=== PATIENT | male | born 1995 ===

== ENCOUNTER 2017-10-21 10:47 | Emergency (ER) | payer MEDICAID, OTHER ==
[2017-10-21 11:01] VITALS: TEMP 98.1
[2017-10-21] MEDS ORDERED: DiphenhydrAMINE 50 mg/ml Inj IVP STA (12:02)
[2017-10-21] MEDS ORDERED: DiphenhydrAMINE 50 mg/ml Inj ONE (12:21)
--- NOTE | 2017-10-21 12:24 | C.PDOC ---
History Of Present Illness 22 year old male presents to the ED for evaluation of a sharp, right-sided headache which has been continuous for the past 2 days. Patient states symptoms had gradual onset. He thinks his symptoms are associated with elevated blood pressure and states he has not taken Zinopril. He also complains of epigastric discomfort and denies fever, chills, chest pain, shortness of breath, nausea, vomiting. Time Seen by Provider: 10/21/17 11:23 Chief Complaint (Nursing): Headache History Per: Patient History/Exam Limitations: no limitations Onset/Duration Of Symptoms: Days (2), Gradual Quality: Sharp, Aching Associated Symptoms: denies: Nausea, Vomiting Additional History Per: Patient Past Medical History Reviewed: Historical Data, Nursing Documentation, Vital Signs Vital Signs: Last Vital Signs Temp 98.1 F 10/21/17 13:51 Pulse 63 10/21/17 13:51 Resp 18 10/21/17 13:51 BP 124/77 10/21/17 13:51 Pulse Ox 98 10/21/17 14:15 - Medical History PMH: HTN Surgical History: No Surg Hx Family History: States: Unknown Family Hx - Social History Hx Alcohol Use: No Hx Substance Use: No - Immunization History Hx Tetanus Toxoid Vaccination: No Hx Influenza Vaccination: No Hx Pneumococcal Vaccination: No Review Of Systems Constitutional: Negative for: Fever, Chills Cardiovascular: Negative for: Chest Pain Respiratory: Negative for: Shortness of Breath Neurological: Positive for: Headache Physical Exam - Physical Exam Appears: Non-toxic, No Acute Distress Skin: Normal Color, Warm, Dry Head: Atraumatic, Normacephalic Eye(s): bilateral: Normal Inspection, PERRL, EOMI Ear(s): Bilateral: Normal Nose: Normal, No Discharge Oral Mucosa: Moist Throat: Normal, No Erythema, No Exudate Neck: Supple Chest: Symmetrical, No Deformity, No Tenderness Cardiovascular: Rhythm Regular, No Murmur Respiratory: Normal Breath Sounds, No Rales, No Rhonchi, No Wheezing Gastrointestinal/Abdominal: Soft, No Tenderness, No Guarding, No Rebound Extremity: Normal ROM Neurological/Psych: Oriented x3, Normal Speech, Normal Cognition Gait: Steady ED Course And Treatment O2 Sat by Pulse Oximetry: 98 (on RA) Pulse Ox Interpretation: Normal Medical Decision Making Medical Decision Making: Assessment: headache Progress: Benadryl IVP, Pepcid IVP and Reglan IVP administered. On reassessment, patient is resting comfortably, showing no signs of distress and reports that his symptoms have resolved. Patient is stable for discharge with Rx for seven tablets of Enalapril and is advised to f/u with PMD/clinic within 1-2 days for further evaluation. Disposition Counseled Patient/Family Regarding: Diagnosis, Need For Followup, Rx Given - Disposition Referrals: [facility] [Outside] Disposition: HOME/ ROUTINE Disposition Time: 13:43 Condition: IMPROVED Additional Instructions: follow up with medical clinic in 2 days call to make an appointment take medication as prescribed return to hospital if symptoms worsens or progress Prescriptions: Enalapril Maleate [Vasotec] 10 mg PO DAILY #10 tab Instructions: Acute Headache (DC), Hypertension (ED) Forms: [facility] (Comoran), Gen Discharge Inst Jordanian, [facility] (Jordanian) Print Language: INDONESIAN - Clinical Impression Clinical Impression: Headache, Hypertension - Scribe Statement The provider has reviewed the documentation as recorded by the Scribe (Tania Webber) Provider Attestation: All medical record entries made by the Scribe were at my direction and personally dictated by me. I have reviewed the chart and agree that the record accurately reflects my personal performance of the history, physical exam, medical decision making, and the department course for this patient. I have also personally directed, reviewed, and agree with the discharge instructions and disposition.
[2017-10-21 13:53] VITALS: BP 124/77; PULSE 63; RESP 18
[2017-10-21 14:15] VITALS: O2SAT 98
== END 2017-10-21 13:53 | disposition home or self-care (01) ==
LOC: C.ER 10:47
DX: R51 Headache (principal); I10 Essential (primary) hypertension
CPT/HCPCS: 96374; 96375; 99285; J1200; J2765

== ENCOUNTER 2018-09-06 15:29 | Emergency (ER) | payer MEDICAID ==
[2018-09-06 16:12] VITALS: RESP 18; TEMP 98.3
--- NOTE | 2018-09-06 16:46 | C.PDOC ---
History Of Present Illness 22 year old male presents to the ED for evaluation of pain to the posterior rib area T5-T6, ongoing for 10 days. Patient states he works in construction, with frequent heavy lifting, and repetitive movements. Pain has worsened with hot showers and heating pads. Denies any trauma, fall, and any other associated symptoms. No SOB, fever, chills, cough, or vomiting. Time Seen by Provider: 09/06/18 16:38 Chief Complaint (Nursing): Back Pain History Per: Patient History/Exam Limitations: no limitations Onset/Duration Of Symptoms: Days Current Symptoms Are (Timing): Still Present Past Medical History Reviewed: Historical Data, Nursing Documentation, Vital Signs Vital Signs: Last Vital Signs Temp 98.3 F 09/06/18 16:05 Pulse 78 09/06/18 16:05 Resp 18 09/06/18 16:05 BP 132/75 09/06/18 16:05 Pulse Ox 98 09/06/18 16:05 - Medical History PMH: Asthma, HTN Family History: States: Unknown Family Hx - Social History Hx Alcohol Use: No Hx Substance Use: No - Immunization History Hx Tetanus Toxoid Vaccination: No Hx Influenza Vaccination: No Hx Pneumococcal Vaccination: No Review Of Systems Except As Marked, All Systems Reviewed And Found Negative. Constitutional: Negative for: Fever, Chills, Sweats Cardiovascular: Positive for: Other (Posterior rib pain). Negative for: Palpitations Respiratory: Negative for: Cough, Shortness of Breath Gastrointestinal: Negative for: Nausea, Vomiting Neurological: Negative for: Weakness, Dizziness Physical Exam - Physical Exam Appears: Non-toxic, No Acute Distress, Other (Thin male) Skin: Normal Color, Warm, Dry Head: Atraumatic, Normacephalic Eye(s): bilateral: Normal Inspection, PERRL, EOMI Oral Mucosa: Moist Neck: Normal ROM Chest: Symmetrical, No Deformity Cardiovascular: Rhythm Regular Respiratory: Normal Breath Sounds, No Accessory Muscle Use, No Rales, No Rhonchi, No Wheezing Gastrointestinal/Abdominal: Soft, No Tenderness Back: CVA Tenderness (right side, near T6), No Vertebral Tenderness, Other (tenderness to the right posterior ribs) Extremity: Bilateral: Atraumatic, Normal ROM Neurological/Psych: Oriented x3, Normal Speech ED Course And Treatment O2 Sat by Pulse Oximetry: 98 (RA) Pulse Ox Interpretation: Normal Medical Decision Making Medical Decision Making: costochondritis @ posterior CVA ribs Disposition Doctor Will See Patient In The: Office Counseled Patient/Family Regarding: Studies Performed, Diagnosis - Disposition Referrals: [facility] [Outside] [facility] [Outside] [facility] [Outside] Disposition: HOME/ ROUTINE Disposition Time: 16:44 Condition: GOOD Additional Instructions: [place] hielo 1/2 hora por hora, nada caliente ibuprofeno/advil/motrin 400-600 mg cada 6 horas leona necessario Instructions: Costochondritis Forms: [facility] (Equatorial [place]inean) Print Language: TELUGU - Clinical Impression Clinical Impression: Costochondral junction syndrome - Scribe Statement The provider has reviewed the documentation as recorded by the Estiven Purdy Provider Attestation: All medical record entries made by the Estiven were at my direction and personally dictated by me. I have reviewed the chart and agree that the record accurately reflects my personal performance of the history, physical exam, medical decision making, and the department course for this patient. I have also personally directed, reviewed, and agree with the discharge instructions and disposition.
[2018-09-06 17:02] VITALS: BP 122/76; PULSE 67
[2018-09-06 19:19] VITALS: O2SAT 98
== END 2018-09-06 17:01 | disposition home or self-care (01) ==
LOC: C.ER 15:29
DX: M94.0 Chondrocostal junction syndrome [Tietze] (principal)